=== PATIENT | female | born 1940 | race Caucasian/White ===

== ENCOUNTER 2016-09-23 08:43 | Day surgery (SDC) | payer MEDICARE, BC ==
[~2016-09-23] VITALS: Ht 154.9 cm; Wt 77.0 kg
[~2016-09-23 08:43] MED LIST: ATEN100T; VALS320T11
[2016-09-23 09:49] VITALS: Ht 154.9 cm; Wt 77.0 kg
[2016-09-23] MEDS ORDERED: NIFE60TA7 PO (10:06)
[2016-09-23] MEDS ORDERED: LORA-441 PO (10:06)
[2016-09-23] MEDS ORDERED: LEVO50TA83 PO (10:06)
[2016-09-23] MEDS ORDERED: CLON-379 PO (10:06)
[2016-09-23] MEDS ORDERED: VALS160T20 PO (10:06)
[2016-09-23] MEDS ORDERED: SIMV20TA PO (10:06)
[2016-09-23] MEDS ORDERED: OLAN2.5T4 PO (10:06)
[2016-09-23] MEDS ORDERED: ASPI81TA3 PO (10:06)
[2016-09-23] MEDS ORDERED: METF500T4 PO (10:06)
[2016-09-23 10:12] VITALS: BP 135/73; PULSE 86; RESP 22
--- NOTE | 2016-09-24 00:07 | GILP ---
DATE OF PROCEDURE: NAME OF PROCEDURE: Colonoscopy and polypectomy. PREOPERATIVE DIAGNOSES: 1. History of rectal bleeding, rule out colorectal neoplasm. 2. Diverticulosis. 3. Hemorrhoids. POSTOPERATIVE DIAGNOSES: 1. Large polyp measuring at least 3.5 cm was noted at 30 cm from the anus. A wide based stalk note d. Polyp was removed in pieces, but is still large size of the polyp left behind because of the wid e base. 2. Diverticulosis. 3. Moderate degree of internal hemorrhoids. 4. Moderate degree of external hemorrhoids. DESCRIPTION OF PROCEDURE: After the informed written consent was obtained, the patient was asked to lie on the left lateral side. Intravenous anesthesia was given by [facility] [employer] NURSE SPECIALIST. When the patient became s omnolent, the Olympus video colonoscope was introduced into the rectum and scope was advanced all th e way to the cecum. At 30 cm from the anus, there is evidence of a wide-based polyp measuring at le ast 3.5 cm was noted. This is a lobulated polyp. Multiple pieces were removed in a piecemeal; gunter te, still a larger piece was left behind on the wide-based stalk. This spot was injected for tatto oing purposes for possible future resection. Two Hemoclips were applied for prophylactic bleeding. Moderate degree of diverticulosis noted all along the colon. Retroflexion was performed. Moderate degree of internal hemorrhoids noted. When the scope was withdrawn, moderate degree of hemorrhoids were noted. PLAN: 1. Wait for the pathology. 2. Repeat the colonoscopy. Dictated By: KAITLIN MAGANA/ALEXANDRA Conf#: [id number] DID#: [id number] CC: AURORA BRADFORD MD; KAITLIN LEON MD;*EndCC*
== END 2016-09-23 16:36 | disposition home or self-care (01) ==
LOC: GIL 08:43
PROVIDERS: ATTEND Internal Medicine Gastroenterology
DX: K63.5 Polyp of colon (principal); K57.90 Diverticulosis of intestine, part unspecified, without perforation or abscess without bleeding; K64.8 Other hemorrhoids; K64.4 Residual hemorrhoidal skin tags; I10 Essential (primary) hypertension; E11.9 Type 2 diabetes mellitus without complications
CPT/HCPCS: 82962; 88305